=== PATIENT | female | born 1985 | race Caucasian/White ===

== ENCOUNTER 2018-07-03 10:39 | Emergency (ER) | END 2018-07-03 14:35 | disposition home or self-care (01) ==

== ENCOUNTER 2018-12-30 15:05 | Emergency (ER) | payer MEDICAID ==
[~2018-12-30] VITALS: Ht 160 cm; Wt 69.5 kg
[~2018-12-30 15:05] MED LIST: PREN1TAB49
[2018-12-30 16:05] VITALS: Ht 160 cm; Wt 69.5 kg
[2018-12-30] MEDS ORDERED: ACETAMINOPHEN 325 MG TAB PO STA (17:58)
[2018-12-30] MEDS ORDERED: SOD CHLORIDE 0.9% 1,000 ML IV STA (17:58)
[2018-12-30] MEDS ORDERED: ONDANSETRON 4 MG INJ IV STA (17:58)
[2018-12-30] MEDS ORDERED: PYRI25TA4 PO (19:56)
[2018-12-30] MEDS ORDERED: ONDA4TAB14 PO (19:56)
--- NOTE | 2018-12-30 20:13 | ERD ---
ER Documentation Chief Complaint Chief Complaint 7 WEEKS , N/V X 1 WEEK, HX OF GASTRITIS HPI 33-year-old female coming in today with Chief Complaint: Nausea/vomiting History of Present Illness: female who is approximately 7 weeks coming in today with complaint of persistent nausea and vomiting for 1 week. No relief of symptoms with at home remedies. Denies sick contacts. Denies any other associated symptoms. Denies use of medications at home for symptoms. ROS All systems reviewed and are negative except as per history of present illness. Medications Home Meds Active Scripts Ondansetron (Ondansetron Odt) 4 Mg Tab.rapdis, 4 MG PO Q6H PRN for NAUSEA AND/OR VOMITING, #15 TAB Prov:CHARLES VIEIRA V LENS POLISHER HAND 12/30/18 Pyridoxine Hcl* (Pyridoxine Hcl*) 25 Mg Tablet, 25 MG PO EVERY DAY for nausea prevention, #60 TAB Prov:CHARLES VIEIRA V LENS POLISHER HAND 12/30/18 Reported Medications Vits W-Ca,Fe,Fa(<1MG) () 1 Tab Tablet 11/06/10 Allergies Allergies: Coded Allergies: No Known Drug Allergy (Verified Allergy, Unknown, 10/06/08) PMhx/Soc Medical and Surgical Hx: pt denies Medical Hx, pt denies Surgical Hx Hx Alcohol Use: No Hx Substance Use: No Hx Tobacco Use: No FmHx Family History: No diabetes Physical Exam Vitals Vital Signs Date Temp Pulse Resp B/P (MAP) Pulse Ox O2 O2 Flow FiO2 Time Delivery Rate 12/30/18 98.4 66 16 125/57 100 16:05 (79) Physical Exam Const: No acute distress Head: Atraumatic Eyes: Normal Conjunctiva ENT: Normal External Ears, Nose and Mouth. Neck: Full range of motion. No meningismus. Resp: Clear to auscultation bilaterally Cardio: Regular rate and rhythm, no murmurs Abd: Soft, non tender, non distended. Normal bowel sounds. No grimacing noted on exam. Skin: No petechiae or rashes Back: No midline or flank tenderness Ext: No cyanosis, or edema Neur: Awake and alert Psych: Normal Mood and Affect Result Diagram: 12/30/18 5863 Results 24 hrs Laboratory Tests Test 12/30/18 18:15 12/30/18 18:45 Urine Color YELLOW Urine Clarity SLIGHTLY CLOUDY Urine pH 6.0 Urine Specific [place] 1.026 Urine Ketones 2+ mg/dL Urine Nitrite NEGATIVE mg/dL Urine Bilirubin NEGATIVE mg/dL Urine Urobilinogen NEGATIVE mg/dL Urine Leukocyte Esterase TRACE Eduardo/ul Urine Microscopic RBC 6 /HPF Urine Microscopic WBC 5 /HPF Urine Squamous Epithelial Cells MODERATE /HPF Urine Mucus MANY /HPF Urine Hemoglobin NEGATIVE mg/dL Urine Glucose NEGATIVE mg/dL Urine Total Protein NEGATIVE mg/dl White Blood Count 8.7 10^3/ul Red Blood Count 3.62 10^6/ul Hemoglobin 11.2 g/dl Hematocrit 33.2 % Mean Corpuscular Volume 91.7 fl Mean Corpuscular Hemoglobin 30.9 pg Mean Corpuscular Hemoglobin Concent 33.7 g/dl Red Cell Distribution Width 12.1 % Platelet Count 200 10^3/UL Mean Platelet Volume 11.4 fl Immature Granulocytes % 0.300 % Neutrophils % 75.1 % Lymphocytes % 17.5 % Monocytes % 5.7 % Eosinophils % 0.8 % Basophils % 0.6 % Nucleated Red Blood Cells % 0.0 /100WBC Immature Granulocytes # 0.030 10^3/ul Neutrophils # 6.5 10^3/ul Lymphocytes # 1.5 10^3/ul Monocytes # 0.5 10^3/ul Eosinophils # 0.1 10^3/ul Basophils # 0.1 10^3/ul Nucleated Red Blood Cells # 0.0 10^3/ul Beta HCG, Quantitative 519828.0 mIU/ml Current Medications Medications Dose Sig/Eva Start Time Status Last (Trade) Ordered Route PRN Stop Time Admin Dose Reason Admin Sodium 1,000 ml @ Q1H STAT 12/30/18 DC 12/30/18 Chloride 1,000 mls/hr IV 17:58 18:54 12/30/18 18:57 650 mg ONCE STAT 12/30/18 DC 12/30/18 Acetaminophen PO 17:58 18:54 (Tylenol 12/30/18 17:59 Tab) Ondansetron 4 mg ONCE STAT 12/30/18 DC 12/30/18 HCl (Zofran IV 17:58 18:54 Inj) 12/30/18 17:59 Procedures/MDM ED course includes a thorough examination and history. ED course includes labs; CBC, urinalysis, beta quantitative. ED course includes imaging; OB pelvic and abdominal ultrasound. Low suspicion for life-threatening medical emergency or gynecological/gastroi ntestinal emergency that requires immediate hospitalization or surgery at this moment. Otherwise healthy patient presenting with constellation of symptoms likely representing uncomplicated hyperemesis gravidarum as characterized by history, physical exam findings. Ultrasound with small subchronic hemorrhage, patient indicated that further care may be warranted to see [facility]. Positive live intra uterine with a uterus. No infection noted to urinalysis, sample appears to be dirty catch. H&H within normal limits. No respiratory distress, otherwise relatively well appearing and nontoxic. Patient educated on diagnoses, prescriptions, follow-up care, return precautions. Strict return precautions given for worsening condition; questions answered discharge. soil conservation technician to assist with translation. Disposition for discharge with followup in 2-3 days with PCP/clinic, preferably [facility]. Departure Diagnosis: Primary Impression: Vomiting Condition: Stable Patient Instructions: Hyperemesis Gravidarum (Severe Morning Sickness), Vomiting (6Y-Adult) [facility] Usted se almanza hecho un examen mdico de control que le indica que no est en ashlee condicin que requiera tratamiento urgente en el Departamento de Emergencia. Un estudio ms profundo y el tratamiento de chaudhry condicin pueden esperar sin ningn riesgo hasta que usted sea atendida/o en el consultorio de chaudhry mdico o ashlee clnica. Es responsabilidad suya arreglar ashlee geronimo para el seguimiento del vishnu. MANEJO DE CONDICIONES NO URGENTES EN EL FUTURO 1) Si usted tiene un mdico de atencin primaria: Usted debera llamar a chaudhry mdico de atencin primaria antes de venir al d epartamento de emergencia. Despus de las horas de consultorio, chaudhry doctor o chaudhry asociado/a est disponible por telfono. El mdico o enfermero de kim en el servicio telefnico puede asesorarle por [facility] para atender el problema, o vishnu contrario se puede programar ashlee geronimo. 2) Si usted no tiene un mdico de atencin primaria: Llame al mdico o clnica de referencia que aparece abajo cinthia las horas de consultorio para hacer ashlee geronimo para que le vean. CLINICAS: [facility] [phone] [facility] [phone] [facility] [phone] [place] [phone] [place] [phone] [address] [facility]. [phone] [address] [facility]. [facility] () Usted se almanza hecho un examen mdico de control que le indica que no est en ashlee condicin que requiera tratamiento urgente en el Departamento de Emergencia. Un estudio ms profundo y el tratamiento de chaudhry condicin pueden esperar sin ningn riesgo hasta que usted sea atendida/o en el consultorio de chaudhry mdico o ashlee clnica. Es responsabilidad suya arreglar ashlee geronimo para el seguimiento del vishnu. MANEJO DE CONDICIONES NO URGENTES EN EL FUTURO 1) Si usted tiene un mdico de atencin primaria: Usted debera llamar a chaudhry mdico de atencin primaria antes de venir al departamento de emergencia. Despus de las horas de consultorio, chaudhry doctor o chaudhry asociado/a est disponible por telfono. El mdico o enfermero de kim en el servicio telefnico puede asesorarle por [employer] para atender el problema, o vishnu contrario se puede programar ashlee geronimo. 2) Si usted no tiene un mdico de atencin primaria: Llame al mdico o condado institucions de referencia que aparece abajo cinthia las horas de consultorio para hacer ashlee geronimo para que le vean. SI USTED NO PUEDE PAGAR PARA TANYA UN MEDICO puede ir a: [facility] [address] [place] [address] [facility] [address] [place] [address] [facility] [address] [place] [address] [facility] [address] [place], [place] [id number] Additional Instructions: Llame a chaudhry mdico de atencin primaria MAANA para ashlee geronimo cinthia los prximos 2 a 3 trujillo para la reevaluacin de los sntomas. Consulte al mdico antes o regrese aqu si chaudhry condicin empeora antes de chaudhry geronimo. [place] zofran segn sea necesario para las nuseas / vmitos. Taky piridoxina todos los trujillo para prevenir la nauesa. Seguimiento con obstetra / gineclogo para mayor atencin y reevaluacin. Embarazo intrauterino en vivo con ashlee edad gestacional estimada de 8 semanas 2 trujillo. Pequea hemorragia subcorinica, por lo que se recomienda seguir con un obstetra / gineclogo para chaudhry reevaluacin. -------- Call your primary care doctor TOMORROW for an appointment during the next 2-3 days for reevaluation of symptoms. See the doctor sooner or return here if your condition worsens before your appointment time. Take zofran as needed for nausea/vomitting. Taky Pyridoxine everyday to prevent nauesa. Followup with [facility] for further care and re-evaluation. Single live intrauterine with an estimated gestational age of 8 weeks 2 days. Small subchorionic hemorrhage, so recommened to followup with [facility] for reevaluation. CHARLES VIEIRA NP Dec 30, 2018 20:13
[2018-12-30 20:18] VITALS: BP 120/75; PULSE 99; RESP 18
== END 2018-12-30 20:22 | disposition home or self-care (01) ==
LOC: FTE 15:05
DX: O21.9 Vomiting of pregnancy, unspecified (principal); Z3A.01 Less than 8 weeks gestation of pregnancy
CPT/HCPCS: 36415; 76801; 81001; 84702; 85025; 96374; J2405; J7030; Z7502; Z7610